=== PATIENT | male | born 1985 ===

== ENCOUNTER 2017-01-28 18:05 | Emergency (ER) | payer OTHER ==
[2017-01-28 18:11] VITALS: BP 121/72; PULSE 76; RESP 20; TEMP 98.2; O2SAT 100
--- NOTE | 2017-01-28 19:05 | C.PDOC ---
History Of Present Illness 31 year old male who presents to the ER with a complaint of itchy skin patches for the past 3 months that worsened today. Denies fever. Time Seen by Provider: 01/28/17 18:52 Chief Complaint (Nursing): Abnormal Skin Integrity History Per: Patient History/Exam Limitations: no limitations Onset/Duration Of Symptoms: Days Current Symptoms Are (Timing): Still Present Location Of Injury: Right: Leg, Left: Leg Quality Of Symptoms: Itching Recent travel outside of the [place]: No Past Medical History Reviewed: Historical Data, Nursing Documentation, Vital Signs Vital Signs: Last Vital Signs Temp 98.2 F 01/28/17 18:09 Pulse 76 01/28/17 18:09 Resp 20 01/28/17 18:09 BP 121/72 01/28/17 18:09 Pulse Ox 100 01/28/17 19:46 - Medical History PMH: No Chronic Diseases Surgical History: No Surg Hx Family History: States: Unknown Family Hx - Social History Hx Alcohol Use: No Hx Substance Use: No - Immunization History Hx Tetanus Toxoid Vaccination: No Hx Influenza Vaccination: No Hx Pneumococcal Vaccination: No Review Of Systems Constitutional: Negative for: Fever, Chills Skin: Positive for: Rash Physical Exam - Physical Exam Appears: Non-toxic, No Acute Distress Skin: Warm, Dry, Other (3 quarter sized scaly, flaky patches to left lateral knee, left distal calf, right lateral calf wit no swelling, warmth or erythema) Head: Atraumatic, Normacephalic Extremity: Normal ROM (x4) Neurological/Psych: Oriented x3, Normal Speech, Normal Cognition ED Course And Treatment O2 Sat by Pulse Oximetry: 100 (Room air) Pulse Ox Interpretation: Normal Disposition Counseled Patient/Family Regarding: Diagnosis, Need For Followup, Rx Given - Disposition Referrals: [facility] [Outside] Disposition: HOME/ ROUTINE Disposition Time: 19:02 Condition: STABLE Additional Instructions: Aplique crema en las reas con picazn 2 veces al da. Seguimiento en la cl bentley judy; llame para xiomara georgina Prescriptions: Clotrimazole/Betamethasone [Lotrisone] 15 gm TOP BID #1 tube Instructions: Acute Rash (ED) Forms: Gen Discharge Inst Kosovan, [employer] [facility] (Kosovan) Print Language: BURKINAN - Clinical Impression Clinical Impression: Rash and nonspecific skin eruption - Scribe Statement The provider has reviewed the documentation as recorded by the Scribe Akbar Geiger All medical record entries made by the Davidibe were at my direction and personally dictated by me. I have reviewed the chart and agree that the record accurately reflects my personal performance of the history, physical exam, medical decision making, and the department course for this patient. I have also personally directed, reviewed, and agree with the discharge instructions and disposition.
== END 2017-01-28 19:12 | disposition home or self-care (01) ==
LOC: C.ER 18:05
DX: R21 Rash and other nonspecific skin eruption (principal)